=== PATIENT | female | born 1990 | race Caucasian/White ===

== ENCOUNTER → 2017-06-28 | Outpatient (CLI) | payer BC, OTHER ==
--- NOTE | 2017-06-28 15:15 | RAD ---
DATE: 06/28/2017 EXAM: DIGITAL DIAGNOSTIC RT, BREAST RIGHT HISTORY: Right breast lump COMPARISON: None available This study was interpreted with the benefit of Computerized Aided Detection (CAD). FINDINGS: Breast Density: HETERO The breast parenchyma Is heterogeneouslyy dense, which could reduce sensitivity of mammography. Breast parenchyma level C. There are no dominant suspicious masses, suspicious microcalcifications or evidence of architectural distortion. There is a prominent appearing dense breast tissue in the right upper inner breast. Initially ultrasound was performed and demonstrates some echogenicity at 1:00 position, likely dense breast tissue. IMPRESSION: Probable dense breast tissue BI-RADS CATEGORY: 3 PROBABLE BENIGN-SHORT TERM F/U RECOMMENDED FOLLOW-UP: CLIN FOLLOW UP IMAGING CLINICALLY INDICATED PQRS compliance statement: Patient information was entered into a reminder system with a target due date as needed for the next mammogram. Mammography is a sensitive method for finding small breast cancers, but it does not detect them all and is not a substitute for careful clinical examination. A negative mammogram does not negate a clinically suspicious finding and should not result in delay in biopsying a clinically suspicious abnormality. "Our facility is accredited by the [employer] Mammography [employer]."
== END | disposition home or self-care (01) ==
LOC: US 14:02
PROVIDERS: ATTEND Physician Assistant Medical
DX: N63.10 Unspecified lump in the right breast, unspecified quadrant (principal)
CPT/HCPCS: 76641; 77065

== ENCOUNTER → 2018-03-05 | Outpatient (CLI) | payer BC ==
--- NOTE | 2018-03-05 10:54 | RAD ---
Right upper quadrant abdominal ultrasound dated 03/05/2018 9:59 AM. Comparison: None Clinical Indication: ABD PAIN . Findings: The liver is homogeneous in echotexture with no evidence of focal hepatic mass. Intrahepatic biliary ducts are normal in caliber. The common bile duct measures 7 mm. No apparent filling defect. The gallbladder is normal in size and echogenicity without gallbladder wall thickening or pericholecystic fluid. No gallstones are seen. Right kidney measures 11.5 cm in length without hydronephrosis. Left kidney was not imaged. Limited visualized portions of the pancreas, aorta and IVC are unremarkable. No significant ascites. IMPRESSION: 1. Mild prominence of the common bile duct for patient's age. This is nonspecific. There is no apparent filling defect or intrahepatic ductal dilatation. Correlate with laboratory findings. 2. Otherwise no significant abnormality. Electronically signed by: Aron Modi MD (03/05/2018 10:51 AM) [id number]
== END | disposition home or self-care (01) ==
LOC: US 09:46
PROVIDERS: ATTEND Physician Assistant Medical
DX: R10.84 Generalized abdominal pain (principal)
CPT/HCPCS: 76705

== ENCOUNTER → 2018-06-11 | Outpatient (CLI) | payer BC ==
--- NOTE | 2018-06-11 15:47 | RAD ---
DATE: 06/11/2018 EXAM: MAMMO ANTOLIN DIAG RT, BREAST RIGHT HISTORY: Follow-up breast lump, breast asymmetry COMPARISON: 06/28/2017 This study was interpreted with the benefit of Computerized Aided Detection (CAD). Breast Density: HETERO The breast parenchyma is heterogenously dense, which could reduce sensitivity of mammography. Breast parenchyma level C. FINDINGS: 2-D and 3-D tomosynthesis imaging was performed in CC and MLO projections. Rolled cc and straight medial lateral views were also formed. There is a persistent ill-defined fibroglandular asymmetric in the upper inner right breast.This process measures approximately 3-4 cm and appears more prominent than on the previous study. The patient reports a lump and tenderness in this region which varies with her menstrual cycle. No other focal breast abnormality is seen. No suspicious microcalcifications are evident. Right breast ultrasound, 06/11/2018: A targeted ultrasound exam of the upper inner right breast was performed. The fibroglandular tissues are heterogeneous, similar to that seen on the 06/28/2017 exam. No discrete mass is identified. IMPRESSION: Fibroglandular asymmetry in the upper inner right breast appears to have progressed slightly since 06/28/2017. A targeted ultrasound exam does not demonstrate a discrete mass. Breast malignancy such as a lobular neoplasm can be difficult to distinguish from normal fibroglandular tissues. Breast MR may be useful for further evaluation in this patient, in addition to surgical consultation. BI-RADS Category 0-incomplete RECOMMENDED FOLLOW-UP: ADD ADDITIONAL IMAGING PQRS compliance statement: Patient information was entered into a reminder system with a target due date for the next mammogram. Mammography is a sensitive method for finding small breast cancers, but it does not detect them all and is not a substitute for careful clinical examination. A negative mammogram does not negate a clinically suspicious finding and should not result in delay in biopsying a clinically suspicious abnormality. "Our facility is accredited by the [employer] Mammography Program."
== END | disposition home or self-care (01) ==
LOC: MAMMO 13:05
PROVIDERS: ATTEND Physician Assistant Medical
DX: N63.12 Unspecified lump in the right breast, upper inner quadrant (principal)
CPT/HCPCS: 76641; 77065; G0279; 77061